=== PATIENT | female | born 1945 | race Caucasian/White ===

== ENCOUNTER 2022-01-04 11:35 | Emergency (ER) | payer MEDICARE, OTHER ==
[~2022-01-04] VITALS: Ht 165.1 cm; Wt 78.9 kg
[~2022-01-04 11:35] MED LIST: [UNRECOGNIZED DRUG - REMARK]; [UNRECOGNIZED DRUG - REMARK]; [UNRECOGNIZED DRUG - REMARK]
[2022-01-04 11:50] VITALS: BP 135/106
[2022-01-04] MEDS ORDERED: KETOROLAC 60 MG/2 ML VIAL IM ONE (12:00)
[2022-01-04 12:50] VITALS: BP 137/86
[2022-01-04] MEDS ORDERED: IBUP-2213 PO (13:47)
[2022-01-04] MEDS ORDERED: OMEP40EC23 PO (13:47)
[2022-01-04] MEDS ORDERED: CIPR500T4 PO (13:47)
== END 2022-01-04 13:53 | disposition home or self-care (01) ==
LOC: MED 11:35
DX: N39.0 Urinary tract infection, site not specified (principal); M79.18 Myalgia, other site; I10 Essential (primary) hypertension; Z86.39 Personal history of other endocrine, nutritional and metabolic disease
CPT/HCPCS: 96372; 99283; J1885